=== PATIENT | male | born 1975 | race Two or more races ===

== ENCOUNTER 2019-09-24 10:36 | Emergency (ER) | payer BC, OTHER ==
[~2019-09-24] VITALS: Ht 170.2 cm; Wt 77.1 kg
[2019-09-24 12:26] LABS: Basophils # (auto) 0.1 uL; Basophils % (auto) 0.9 % (0.0-2.0); Eosinophils # (auto) 0 uL; Eosinophils % (auto) 0.2 % (0.0-7.0); Hematocrit 46.7 % (41.0-53.0); Lymphocytes # (auto) 1.6 uL; Lymphocytes % (auto) 16.7 % (10.0-50.0); Mean Corpuscular Hemoglobin 31.9 pg (28.0-32.0); Mean Corpuscular Hgb Conc. 34.3 g/dL (32.0-36.0); Monocytes # (auto) 0.7 uL; Monocytes % (auto) 7.7 % (0.0-12.0); Neutrophils % (auto) 74.5 % (37.0-80.0); Nucleated Red Blood Cells % 0.1 %; Platelet Count (auto) 310 10^3/uL (140-450); Red Blood Cells 5.02 10^6/uL (4.5-5.90); Red Cell Distribution Width 13.4 % (11.8-14.3); White Blood Cell 9.4 10^3/uL (4.4-10.8)
[2019-09-24 12:28] LABS: Urine Bacteria NONE SEEN /hpf (None Seen); Urine Blood Negative /uL (Negative); Urine WBC 1 /hpf (0 - 3)
[2019-09-24 12:49] LABS: Potassium 4.1 mmol/L (3.5-5.1)
[2019-09-24 12:56] LABS: Albumin 4.2 g/dL (3.4-5.0); BUN/Creatinine Ratio 10.3; Bilirubin, Total 0.6 mg/dL (0.2-1.0); Calcium 9.2 mg/dL (8.5-10.1); Total Protein 7.5 g/dL (6.4-8.2)
[2019-09-24] MEDS ORDERED: ONDANSETRON HCL 4 MG/2 ML VIAL IV ONE (14:30)
[2019-09-24] MEDS ORDERED: SODIUM CHLORIDE 0.9% 1,000 ML IV ONE (14:30)
[2019-09-24] MEDS ORDERED: PANTOPRAZOLE 40 MG/10 ML VIAL INJ IV ONE (14:45)
[2019-09-24 18:03] VITALS: BP 137/92
== END 2019-09-24 18:24 | disposition home or self-care (01) ==
LOC: ER 10:49
DX: K29.70 Gastritis, unspecified, without bleeding (principal); N20.0 Calculus of kidney; F10.10 Alcohol abuse, uncomplicated
CPT/HCPCS: 36415; 74176; 80053; 80320; 81001; 83690; 83735; 85025; 96361; 96374; 96375; 99284; C9113; J2405; J7030